=== PATIENT | male | born 1985 | race Two or more races ===

== ENCOUNTER → 2016-12-23 | Outpatient (REF) | payer OTHER ==
[2016-12-28 08:07] LABS: HEPATITIS C QUANTITATION 8814780 IU/mL (.)
== END ==
LOC: M LAB REF 12:48
PROVIDERS: ATTEND Family Medicine Addiction Medicine
DX: R53.83 Other fatigue (principal); B18.2 Chronic viral hepatitis C

== ENCOUNTER → 2017-01-27 | Outpatient (CLI) | payer OTHER ==
[2017-01-27 15:15] LABS: BASO % 0.6 % (0.0-1.0); EOS # 0.1 10^3/uL (0.0-0.50); EOS % 1.4 % (0.0-3.0); IMMATURE GRANULOCYTE % 0.2 % (0-0); LYMPH # 2.1 10^3/uL (1.5-4.5); LYMPH % 31.5 % (24.0-44.0); MEAN CORPUSCULAR HEMOGLOBIN 33.3 pg (27.0-33.0); MEAN CORPUSCULAR HGB CONC 34.9 g/dl (32.0-36.5); MEAN CORPUSCULAR VOLUME 95.4 fl (80.0-96.0); MONO # 0.7 10^3/uL (0.0-0.8); NEUTROPHILS # 3.7 10^3/uL (1.8-7.7); NEUTROPHILS % 56.3 % (36.0-66.0); PLATELET COUNT, AUTOMATED 249 10^3/uL (150-450); RED CELL DISTRIBUTION WIDTH 11.9 % (11.5-14.5); WHITE BLOOD COUNT 6.5 10^3/uL (4.0-10.0)
[2017-01-27 15:18] LABS: ADD MORPHOLOGY? NO
[2017-01-27 15:47] LABS: ALKALINE PHOSPHATASE 39 U/L (45-117); ALT/SGPT 165 U/L (12-78); ANION GAP 5 MEQ/L (8-16); AST/SGOT 80 U/L (15-37); BLOOD UREA NITROGEN 13 MG/DL (7-18); CALCIUM LEVEL 8.9 MG/DL (8.5-10.1); CARBON DIOXIDE LEVEL 30 MEQ/L (21-32); CHLORIDE LEVEL 101 MEQ/L (98-107); CREATININE FOR GFR 0.85 MG/DL (0.70-1.30); GLOMERULAR FILTRATION RATE > 60.0 (>60); GLUCOSE, FASTING 89 MG/DL (70-105); POTASSIUM SERUM 4.5 MEQ/L (3.5-5.1); SODIUM LEVEL 136 MEQ/L (136-145)
[2017-01-27 15:48] LABS: ALBUMIN 4.2 GM/DL (3.2-5.2); ALBUMIN/GLOBULIN RATIO 1.27 (1.00-1.93); BILIRUBIN,DIRECT 0.3 MG/DL (0.0-0.2); TOTAL PROTEIN 7.5 GM/DL (6.4-8.2)
--- NOTE | 2017-01-28 01:59 | REP ---
Clinical: Pain . Technique: Internal rotation, external rotation, and Y view right shoulder . Findings: No acute fracture or dislocation. The acromioclavicular and glenohumeral joints are intact. No periarticular calcifications or degenerative changes are appreciated. Sub acromial space is normal. Surrounding soft tissues are unremarkable. Impression: Normal right shoulder radiographs. Signed by Mario Ruggiero MD 01/28/2017 01:50 A
--- NOTE | 2017-01-28 13:32 | REP ---
Clinical: Back pain with history of hepatitis . Technique: AP, lateral, and coned-down views. Findings: Alignment and lordosis is maintained. The vertebral bodies including transverse process and spinous processes are intact age appropriate. There is no evidence for acute fracture / compression injury or subluxation. No significant degenerative change is noted. Impression: Age appropriate lumbosacral spine radiograph series. If the patient remains symptomatic consider MRI for further investigation. Signed by Mario Ruggiero MD 01/28/2017 12:17 A
[2017-02-04 08:17] LABS: ALT 140 IU/L (0-55); FIBROSIS STAGE F1-F2 (.); GGT 59 IU/L (0-65); HAPTOGLOBIN 76 mg/dL (34-200); HEPATITIS C VIRUS GENOTYPE 3 (.); NECROINFLAM SCORE 0.72 (0.00-0.17); NECROINFLAMM GRADE A3-Severe activity (.); TOTAL BILIRUBIN 0.8 mg/dL (0.0-1.2)
== END ==
LOC: M LAB 14:16
PROVIDERS: ATTEND Family Medicine Addiction Medicine
DX: B18.2 Chronic viral hepatitis C (principal); M54.5 Low back pain; M25.511 Pain in right shoulder

== ENCOUNTER 2017-03-07 14:09 | Outpatient (RCR) | payer OTHER | END 2017-03-31 | LOC: M PT 14:09 | PROVIDERS: ATTEND Family Medicine Addiction Medicine | DX: Z51.89 Encounter for other specified aftercare (principal); M54.5 Low back pain; M25.511 Pain in right shoulder ==

== ENCOUNTER → 2017-03-17 | Outpatient (CLI) | payer OTHER ==
--- NOTE | 2017-03-17 10:39 | REP ---
Clinical: Chronic hepatitis C. Technique: Real time cortez scale ultrasound examination using curved array transducer. Findings: The liver demonstrates a mildly coarsened parenchymal echo texture without focal hepatic lesion identified. The pancreas is unremarkable. The gallbladder is without gallstones, wall thickening or pericholecystic fluid. No biliary ductal dilatation is appreciated and the common bile duct measures 4 mm diameter. The right kidney is normal in reniform shape without hydronephrosis and measures 10.0 x 7.3 x 4.8 cm including sub centimeter lower pole cyst. No ascites. Visualized abdominal aorta normal. Impression: 1. Evidence to suggest hepatocellular disease without focal hepatic lesion identified. 2. Subcentimeter right renal cyst. Signed by Mario Ruggiero MD 03/17/2017 10:31 A
== END ==
LOC: M RAD 08:44
PROVIDERS: ATTEND Internal Medicine Infectious Disease
DX: B18.2 Chronic viral hepatitis C (principal); N28.1 Cyst of kidney, acquired

== ENCOUNTER → 2017-03-28 | Outpatient (REF) | payer OTHER ==
[2017-03-28 17:01] LABS: ALBUMIN/GLOBULIN RATIO 1.25 (1.00-1.93); BILIRUBIN,DIRECT 0.2 MG/DL (0.0-0.2); BILIRUBIN,TOTAL 0.7 MG/DL (0.2-1.0); TOTAL PROTEIN 7.2 GM/DL (6.4-8.2)
[2017-03-31 10:13] LABS: HEPATITIS C QUANTITATION 20 IU/mL (.)
== END ==
LOC: M SFHCPLAZ 13:40
PROVIDERS: ATTEND Internal Medicine Infectious Disease
DX: B18.2 Chronic viral hepatitis C (principal)

== ENCOUNTER 2017-05-16 04:48 | Emergency (ER) | payer OTHER ==
[2017-05-16] MEDS: PERCOCET 5MG/325MG TAB PO (08:02)
== END 2017-05-16 08:30 | disposition home or self-care (01) ==
LOC: M ED 04:48
DX: S43.422A Sprain of left rotator cuff capsule, initial encounter (principal); X50.9XXA Other and unspecified overexertion or strenuous movements or postures, initial encounter; Y92.009 Unspecified place in unspecified non-institutional (private) residence as the place of occurrence of the external cause; G89.29 Other chronic pain; F17.210 Nicotine dependence, cigarettes, uncomplicated
CPT/HCPCS: 73030

== ENCOUNTER → 2017-07-25 | Outpatient (CLI) | payer OTHER | LOC: M ADMPAT 09:14 | DX: Z01.812 Encounter for preprocedural laboratory examination (principal) | CPT/HCPCS: 87070 ==

== ENCOUNTER → 2017-07-29 | Outpatient (REF) | payer OTHER ==
[2017-07-29 14:31] LABS: BASO # 0.1 10^3/uL (0.0-0.2); BASO % 0.8 % (0.0-1.0); EOS # 0.1 10^3/uL (0.0-0.50); EOS % 2.2 % (0.0-3.0); HEMATOCRIT 43.8 % (42.0-52.0); IMMATURE GRANULOCYTE % 0.2 % (0-3.0); LYMPH # 2.7 10^3/uL (1.5-4.5); LYMPH % 45.3 % (24.0-44.0); MEAN CORPUSCULAR HEMOGLOBIN 32.8 pg (27.0-33.0); MEAN CORPUSCULAR HGB CONC 34.2 g/dl (32.0-36.5); MEAN CORPUSCULAR VOLUME 95.8 fl (80.0-96.0); MONO # 0.7 10^3/uL (0.0-0.8); MONO % 11.4 % (0.0-5.0); NEUTROPHILS # 2.4 10^3/uL (1.8-7.7); NEUTROPHILS % 40.1 % (36.0-66.0); PLATELET COUNT, AUTOMATED 275 10^3/uL (150-450); RED BLOOD COUNT 4.57 10^6/uL (4.30-6.10); RED CELL DISTRIBUTION WIDTH 12.4 % (11.5-14.5); WHITE BLOOD COUNT 5.9 10^3/uL (4.0-10.0)
[2017-07-29 14:44] LABS: ALBUMIN 4.2 GM/DL (3.2-5.2); ALKALINE PHOSPHATASE 40 U/L (45-117); ALT/SGPT 21 U/L (12-78); AST/SGOT 16 U/L (7-37); BILIRUBIN,DIRECT 0.2 MG/DL (0.0-0.2); BILIRUBIN,TOTAL 0.6 MG/DL (0.2-1.0); TOTAL PROTEIN 7.2 GM/DL (6.4-8.2)
[2017-08-02 10:11] LABS: HEPATITIS C QUANTITATION HCV Not Detected IU/mL (.)
== END ==
LOC: M SFHCPLAZ 10:56
DX: B18.2 Chronic viral hepatitis C (principal)

== ENCOUNTER 2017-08-15 07:10 | Observation (INO) | payer OTHER ==
[2017-08-15] MEDS: BUPIVACAINE HCL 0.25% 30 ML VIAL As Ordered (07:27)
[2017-08-15] MEDS: methylPREDNISolone 500 MG VIAL (J2930) As Ordered (07:27)
[2017-08-15 07:45] LABS: HEMATOCRIT 44.6 % (42.0-52.0); HEMOGLOBIN 15.7 g/dl (13.5-17.5); MEAN CORPUSCULAR HEMOGLOBIN 32.8 pg (27.0-33.0); MEAN CORPUSCULAR HGB CONC 35.2 g/dl (32.0-36.5); MEAN CORPUSCULAR VOLUME 93.3 fl (80.0-96.0); PLATELET COUNT, AUTOMATED 251 10^3/uL (150-450); RED BLOOD COUNT 4.78 10^6/uL (4.30-6.10); RED CELL DISTRIBUTION WIDTH 12.1 % (11.5-14.5); WHITE BLOOD COUNT 6.8 10^3/uL (4.0-10.0)
[2017-08-15] MEDS: LR 1,000 ML IV ×3 (07:54→14:00)
[2017-08-15] MEDS: PERCOCET 5MG/325MG TAB PO ×2 (07:56→19:27)
[2017-08-15] MEDS: GABAPENTIN 300 MG CAP PO ×2 (07:56→19:26)
[2017-08-15] MEDS: CelecoXIB (CeleBREX) 100 MG CAP PO (07:57)
[2017-08-15 08:11] LABS: ANION GAP 5 MEQ/L (8-16); BLOOD UREA NITROGEN 12 MG/DL (7-18); CALCIUM LEVEL 8.9 MG/DL (8.5-10.1); CARBON DIOXIDE LEVEL 28 MEQ/L (21-32); CHLORIDE LEVEL 108 MEQ/L (98-107); CREATININE FOR GFR 0.97 MG/DL (0.70-1.30); GLOMERULAR FILTRATION RATE > 60.0 (>60); GLUCOSE, FASTING 99 MG/DL (70-100); POTASSIUM SERUM 4.1 MEQ/L (3.5-5.1); SODIUM LEVEL 141 MEQ/L (136-145)
[2017-08-15] MEDS ORDERED: PROPOFOL 200 MG/20 ML VIAL As Ordered (08:47)
[2017-08-15] MEDS ORDERED: dexameTHASONE 4 MG/ML 1ML VIAL (J1100) As Ordered (08:47)
[2017-08-15] MEDS ORDERED: LIDOCAINE 2% INJ 100 MG/5 ML SDV (FOR ANES.) As Ordered (08:47)
[2017-08-15] MEDS ORDERED: ROCURONIUM BROMIDE 50 MG/5 ML VIAL As Ordered ×2 (08:47→09:48)
[2017-08-15] MEDS ORDERED: fentaNYL 100 MCG/2 ML INJECTION (J3010) As Ordered ×3 (08:47→13:42)
[2017-08-15] MEDS ORDERED: MIDAZOLAM INJ 2 MG/2 ML VIAL (J2250) As Ordered (08:47)
[2017-08-15] MEDS ORDERED: ALBUTEROL 6.7GM INHALER **FOR ANES. CART/OMNICELL ONLY As Ordered (09:48)
[2017-08-15] MEDS: LIDOCAINE W/EPINEPHRINE 1% 20ML VIAL As Ordered (10:09)
[2017-08-15] MEDS ORDERED: GLYCOPYRROLATE INJ 0.2 MG/ML 2 ML VIAL As Ordered (10:35)
[2017-08-15] MEDS ORDERED: NEOSTIGMINE 10 MG/10 ML VIAL (J2710) As Ordered (10:35)
[2017-08-15] MEDS ORDERED: ONDANSETRON 4MG/2ML VIAL (J2405) As Ordered (10:35)
[2017-08-15] MEDS ORDERED: HYDROmorphone HCL 2 MG/ML 1ML VIAL (J1170) As Ordered (10:36)
[2017-08-15] MEDS: THROMBIN SOLN 20,000 UNITS KIT As Ordered (12:09)
[2017-08-15] MEDS: BACITRACIN PWD 50,000 UNITS VIAL As Ordered (12:10)
[2017-08-15] MEDS ORDERED: LABETALOL HCL 100 MG/20 ML VIAL As Ordered (12:47)
[2017-08-15] MEDS: fentaNYL 100 MCG/2 ML INJECTION (J3010) IV ×4 (13:50→14:05)
[2017-08-15] MEDS ORDERED: ONDANSETRON 4MG/2ML VIAL (J2405) IV (14:00)
[2017-08-15] MEDS ORDERED: MORPHINE 10 MG/ML 1ML VIAL (J2270) IV (14:00)
[2017-08-15] MEDS ORDERED: PROMETHAZINE INJ 25 MG/ML VIAL (J2550) IV (14:15)
[2017-08-15] MEDS ORDERED: PERCOCET 5MG/325MG TAB PO ×3 (14:15→16:00)
[2017-08-15] MEDS ORDERED: CYCLOBENZAPRINE 10 MG TAB PO (14:15)
[2017-08-15] MEDS ORDERED: MORPHINE 4 MG/ML 1ML VIAL/SYRINGE (J2270) IV (14:15)
[2017-08-16] MEDS: LR 1,000 ML IV
[2017-08-16] MEDS: GABAPENTIN 300 MG CAP PO (08:10)
== END 2017-08-16 09:00 | disposition home or self-care (01) ==
LOC: M OROP 07:10 → M MS5PR 14:30 → M OROP 14:52 → M MS5PR 14:52
DX: M54.12 Radiculopathy, cervical region (principal); M48.02 Spinal stenosis, cervical region; M50.222 Other cervical disc displacement at C5-C6 level; M50.223 Other cervical disc displacement at C6-C7 level; B18.2 Chronic viral hepatitis C; K21.9 Gastro-esophageal reflux disease without esophagitis; F17.210 Nicotine dependence, cigarettes, uncomplicated; Z79.899 Other long term (current) drug therapy
CPT/HCPCS: 22551

== ENCOUNTER → 2017-10-24 | Outpatient (CLI) | payer OTHER | LOC: M OUTALCOH 08:36 | DX: Z03.89 Encounter for observation for other suspected diseases and conditions ruled out (principal) ==

== ENCOUNTER 2017-11-07 11:32 | Outpatient (RCR) | payer OTHER | END 2017-11-29 | LOC: M OUTALCOH 11:32 | DX: F10.10 Alcohol abuse, uncomplicated (principal) ==